=== PATIENT | female | born 1965 | race Hispanic/Latino ===

== ENCOUNTER 2017-12-11 06:05 | Day surgery (SDC) | payer OTHER ==
[2017-12-08 10:38] VITALS: BMI 22.8
--- NOTE | 2017-12-09 03:09 | HP ---
REASON FOR DICTATION: Left heart cath, possible angioplasty, abnormal stress test. BRIEF CLINICAL HISTORY: This is a 51-year-old, with ex-alcohol abuse, active tobacco abuse, history of sudden cardiac x2, VT, Vfib arrest, status post CABG, status post STEMI, status post PTCA, occluded graft - status post CABG, and while the patient was in CABG, went to the medical center and had sudden cardiac , shock, intraaortic balloon pump and patient had CABG. Cardiomyopathy significantly improved. Now patient is complaining of shortness of breath and turbulence. Patient underwent a stress test that was abnormal. Patient was scheduled for elective cardiac cath, possible angioplasty. PAST MEDICAL HISTORY: Significant for coronary artery disease, status post [id number], status post PTCA. Then patient had a STEMI and patient had a CABG. Before CABG, the patient had sudden cardiac . Prior to the patient admitted with acute STEMI, had also sudden cardiac survival too. Cardiomyopathy significantly improved. History of hyperlipidemia, hypertension. PREVIOUS CARDIAC WORKUP: As follows: Patient is status post WA, status post stent. Patient had code STEMI in the past and sudden cardiac . Also the patient had a stent in LAD, then subsequently in-stent restenosis. The patient was sent for the CABG where the patient had underwent emergency bypass because the patient had Vfib arrest while awaiting for the CABG. At that time, saphenous graft to the LAD, saphenous graft to the RCA, as well as saphenous graft to the OM2 in 06/2014 at the [facility]. Prior to that, patient had WA in 06/2014, and then PTCA x2. Patient had code STEMI in 07/2013 and then non-STEMI in 06/2014, leading to 3-vessel bypass as mentioned above; SVG to LAD, SVG to RCA, and SVG to OM2. Last catheterization on 05/11/2015 because of abnormal stress test, revealed [place] triple vessel disease, patent SVG to LAD, patent SVG to RCA, patent SVG to circumflex, and preserved LV ejection fraction at 60%. At that time, the [place] vessels showed left main distal 70% stenosis, right dominant system, left LAD 90% stenosis in the ostial segment and mid-LAD 80% stenosis. Circumflex has 100% stenosis in the distal segment with right coronary artery 90% stenosis, mid to distal segment. Recent stress test dated 11/10/2017 shows reversible ischemia apical defect, ejection fraction 54%. Patient's echocardiography done shows ejection fraction 55%. A stress test done at [facility] dated 11/10/2017 shows mild apical ischemia. Echo was also done at the [facility]. CURRENT MEDICATIONS: Patient is taking at home: Potassium chloride, omega-3, nicotine patch, metoprolol, Lopressor 25 mg b.i.d., levothyroxine 25 mcg once a day, Lasix 20 mg daily, fenofibrate, vitamin D2, clopidogrel 75 mg, atorvastatin 40 mg, aspirin 81 mg, Xanax 0.5 mg, albuterol 1 puff b.i.d. ALLERGIES: NO KNOWN DRUG ALLERGIES. PHYSICAL EXAMINATION: VITAL SIGNS: As follows: Height of the patient is 5 feet 2 inches, weight of the patient 125 pounds, body mass index 22.9. Rest of the examination as follows: Heart rate 63, blood pressure 130/80. HEENT: PERRLA. Extraocular muscles intact. NECK: Supple. No carotid bruits or thyromegaly. CHEST: Clear to auscultation. HEART: S1 and S2 regular. ABDOMEN: Soft. EXTREMITIES: Clubbing and cyanosis negative. LABORATORY DATA: Blood workup pending. IMPRESSION: Abnormal stress test, history of ST elevation myocardial infarction in 2012, history of percutaneous transluminal coronary angioplasty, then history of non-ST elevation myocardial infarction status post cath at that time revealed left main 70% stenosis, left anterior descending 90%, right coronary artery 90%, and circumflex completely occluded. Last catheterization on 05/11/2015 shows patent saphenous vein graft to left anterior descending, patent saphenous vein graft to circumflex, patent saphenous vein graft to right coronary artery. At that time, left main 70%, left anterior descending 90%, right coronary artery 90%, mid to distal circumflex occluded. Most recent stress test is abnormal. Echo, preserved left ventricular function, ejection fraction 54%. Hypertension, hyperlipidemia, cardiomyopathy improved, ex-alcohol abuse, active tobacco abuse. RECOMMENDATIONS: We will wait for the blood workup. When the blood workup is available, we will proceed for cardiac catheterization. Risks, benefits, and alternatives explained to the patient. The patient agreeable to proceed for cardiac catheterization. Further recommendations after cardiac catheterization. We will follow with you. Thank you Dr. Solano for providing us the opportunity in taking care of the patient, Flor Guan. Bronson Purdy MD
[2017-12-11 06:59] VITALS: RESP 18
[2017-12-11 07:04] LABS: BASO # 0.01 K/mm3 (0.0-2.0); BASO % 0.2 % (0.0-3.0); EOS # 0.1 (0.0-0.7); EOS % 2.3 % (1.5-5.0); GRAN # 2.98 (1.4-6.5); GRAN % 57.4 % (50.0-68.0); HEMOGLOBIN 12.4 g/dL (12.0-16.0); LYMPH # 1.6 (1.2-3.4); LYMPH % 31.2 % (22.0-35.0); MEAN CELL VOLUME 94.8 fl (80.0-105.0); MEAN CORPUSCULAR HGB CONC 32.7 g/dl (31.0-37.0); MEAN PLATELET VOLUME 9.2 fl (7.0-11.0); MONO # 0.5 (0.1-0.6); MONO % 8.9 % (1.0-6.0); RED CELL DISTRIBUTION WIDTH 15.7 % (11.5-14.5); WHITE BLOOD COUNT 5.2 10^3/ul (4.5-11.0)
[2017-12-11 07:10] LABS: BLOOD UREA NITROGEN 9 mg/dL (7-21); CALCIUM 10.2 mg/dL (8.4-10.5); GFR AFRICAN-AMERICAN > 60; GFR NON-AFRICAN AMERICAN > 60; HDL CHOLESTEROL 30 mg/dL (29-60)
[2017-12-11] MEDS ORDERED: Phenylephrine 10 mg/ml Inj ONE (07:16)
[2017-12-11] MEDS ORDERED: HEPARIN SODIUM/NS 2,000 ML IV ONE (07:16)
[2017-12-11] MEDS ORDERED: Lidocaine 2% Inj (20ml) ONE (07:16)
[2017-12-11 07:20] LABS: LDL CHOLESTEROL 62 mg/dL (0-129)
[2017-12-11 07:25] LABS: INR 1.05 (0.93-1.08); PARTIAL THROMBOPLASTIN TIME 37.3 Seconds (25.1-36.5); PROTHROMBIN TIME 12.1 SECONDS (9.4-12.5)
[2017-12-11] MEDS ORDERED: Iohexol 350 MG/100 ML VIAL ONE (07:31)
[2017-12-11] MEDS ORDERED: Iohexol 350mgl/ml 50 ML ONE (07:31)
[2017-12-11] MEDS ORDERED: Midazolam 2 MG/2 ML VIAL ONE ×2 (07:56→09:40)
[2017-12-11] MEDS ORDERED: HEPARIN SODIUM/NS 1,000 ML IV ONE (09:18)
[2017-12-11] MEDS ORDERED: Sodium Chloride 0.9% 1,000 ML IV SCH (10:30)
[2017-12-11 10:53] VITALS: TEMP 98.4
[2017-12-11 15:50] VITALS: BP 127/72; PULSE 60; O2SAT 98
--- NOTE | 2017-12-11 17:33 | CARD ---
APPROVED REPORT Procedure(s) performed: Left Heart Catheterization SVG Angiogram HISTORY The patient is a 51 year-old female with a history of : previous [place] (> 7 days), most recent EF: 54%. (EF Method: RADIONUCLIDE), previous diagnostic cath, tobacco history() : The patient is a current smoker , previous PCI (The PCI date was 07/23/2013), hypertension , previous CABG (The CABG date was 12/21/2013), dyslipidemia , Hx of SCD survivor twice. INDICATION The indication(s) include : positive stress test. CASE TECHNIQUE The patient was brought electively to the Cardiac Catheterization Laboratory in a fasting state and was prepped and draped in a sterile manner. The right femoral groin was infiltrated with 2% Lidocaine subcutaneous anesthesia. A 6 Fr x 11 cm Lachelle sheath was inserted into the right femoral artery without difficulty. Coronary angiography was performed using coronary diagnostic catheters. The left coronary system was accessed and visualized with a Diagnostic ,5 Fr JL 4 catheter. The right coronary system was accessed and visualized with a Diagnostic ,5Fr Jr 3.5 catheter. The left ventricle was accessed and visualized with a Pig tail catheter. The saphenous vein graft was accessed and visualized with a 5Fr JR 3.5 catheter. Left ventriculogram was performed in [place] projection. The patient tolerated the procedure well and there were no complications associated with the procedure. Vessel Analysis The patient's coronary anatomy is right dominant. The left main coronary artery is a medium size vessel with diffuse calcification noted throughout this vessel and without significant stenosis. The left main bifurcates to the left anterior descending and circumflex. The left anterior descending artery is a medium size vessel with diffuse calcification noted throughout this vessel and with significant stenosis. There is a 100% stenosis in the mid segment. The circumflex artery is a medium size vessel with diffuse calcification noted throughout this vessel and with significant stenosis. There is a 100% stenosis in the mid segment. The right coronary artery is a medium size vessel with diffuse calcification noted throughout this vessel and without significant stenosis. There is a 80% stenosis in the mid segment. The saphenous vein graft to the mid left anterior descending artery segment is patent . The saphenous vein graft to the first obtuse marginal branch segment is patent . The saphenous vein graft to the distal right coronary artery is patent . Left Ventricle The left ventricle is normal in size with normal contractility. There was no cardiomyopathy. The left ventricular ejection fraction is estimated to be 55-60%%. The left ventricular end diastolic pressure is 18-20 mmHg. There was no gradient across the aortic valve upon pullback. Conclusion [place] Three vessel Disease Preserved LV Fx, EF-55-60%, [id number] mmof Hg. Patent SVG to MID LAD, Distal LAD Diffusely disesed, Moderate. Patent SVG to OM1 Patent SVG to Distal RCA. Recommendations Smoking Cessation Aggressive Medical TherapyCardiac Risk Reduction Program CC; DFR. Lorie Solano MD
--- NOTE | 2017-12-13 02:52 | CARD ---
APPROVED REPORT EKG Measurement Heart [id number] <Conclusion> Sinus bradycardia Consider old anterior infarct vs lead misplacement Otherwise normal ECG
== END 2017-12-11 15:46 | disposition home or self-care (01) ==
LOC: CATH 06:05
PROVIDERS: ATTEND Internal Medicine Cardiovascular Disease
DX: I25.10 Atherosclerotic heart disease of native coronary artery without angina pectoris (principal); I10 Essential (primary) hypertension; I42.9 Cardiomyopathy, unspecified; E78.5 Hyperlipidemia, unspecified; I25.2 Old myocardial infarction; F17.200 Nicotine dependence, unspecified, uncomplicated; Z95.5 Presence of coronary angioplasty implant and graft; Z86.74 Personal history of sudden cardiac arrest; Z95.1 Presence of aortocoronary bypass graft
CPT/HCPCS: 36415; 80048; 80061; 82948; 84702; 85025; 85610; 85730; 86850; 86900; 93005; 93459; 99152; C1760; C1769; C1887 ×2; C2629; J1644; J2250; J3010; J7040; Q9967